=== PATIENT | female | born 1995 | race African-American/Black ===

== ENCOUNTER 2018-05-11 21:10 | Inpatient (IN) | payer OTHER ==
[2018-05-11 22:46] VITALS: BMI 38.0
[2018-05-11] MEDS ORDERED: BUTORPHANOL TARTRATE 1 MG/ML VIAL IVPB ONE (22:48)
[2018-05-11] MEDS ORDERED: PROMETHAZINE HCL 25 MG/1 ML VIAL IVPUSH ONE (22:48)
[2018-05-11] MEDS ORDERED: AMPICILLIN - 2 GM in SODIUM CHLORIDE 100 ML IVPB ONE (22:50)
[2018-05-11] MEDS: ELECTROLYTE-148 SOLN 1,000 ML IV SCH (23:00)
--- NOTE | 2018-05-11 23:01 | HP ---
Past Medical History - Primary Care Physician PCP:: Dana Aguilar - Admission Chief Complaint: Spontaneous rupture of membranes. 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 History Source: Patient - Past Medical History ...: 2 ...Para: 0 ...Term: 0 ...: 0 ...Spon : 0 ...Induced : 1 ...Multiple Gestation: 0 ...LMP: 08/08/18 ...EDC by Dates: 05/13/18 ...EDC by Sono: 05/15/18 - Past Surgical History Hx Myomectomy: No Hx Transabdominal Cerclage: No Additional Surgical History: VTOP x 1 - Smoking History Smoking history: Never smoked Have you smoked in the past 12 months: No - Alcohol/Substance Use Hx Alcohol Use: No Home Medications - Allergies Allergies/Adverse Reactions: Allergies Allergy/AdvReac Type Severity Reaction Status Date / Time latex Allergy Verified 05/11/18 22:51 Review of Systems - Review of Systems Constitutional: reports: No Symptoms Eyes: reports: No Symptoms HENT: reports: No Symptoms Neck: reports: No Symptoms Cardiovascular: reports: No Symptoms Respiratory: reports: No Symptoms Gastrointestinal: reports: No Symptoms Genitourinary: reports: No Symptoms Breasts: reports: No Symptoms Reported Musculoskeletal: reports: No Symptoms Integumentary: reports: No Symptoms Neurological: reports: No Symptoms Endocrine: reports: No Symptoms Hematology/Lymphatic: reports: No Symptoms Psychiatric: reports: No Symptoms Physical Exam - Maternity Vital Signs: Vital Signs Temperature 99.3 F 05/11/18 22:33 Pulse Rate 95 H 05/11/18 22:33 Respiratory Rate 18 05/11/18 22:33 Blood Pressure 136/81 05/11/18 22:33 O2 Sat by Pulse Oximetry (%) Constitutional: Yes: Well Nourished, No Distress Neck: Yes: Rigid Cardiovascular: Yes: WNL Lungs: Clear to auscultation - Abdominal Exam/OB Number of Fetuses: Single Presentation: Vertex Contractions: Yes Regularity: Regular Intensity: Mild/Mod Monitor Mode: External Category: I - Vaginal Exam/OB Dilatation (cm): 3 Amniotic Membrane Status: Ruptured Presentation: Vertex/Position - Physical Exam Musculoskeletal: Yes: WNL Extremities: Yes: WNL Edema: No Psychiatric: Yes: WNL, Alert, Oriented Hemorrhage Risk Assessment - Risk Factors Risk Score: 0 Risk Level: Low Risk Problem List - Problems (1) Spontaneous onset of labor Code(s): [id number] - Assessment/Plan IUP at 39 weeks srom Cat 1 Plan IV F Stadol
[2018-05-11 23:03] LABS: BASO % 0.2 % (0-2.0); HEMATOCRIT 34.8 % (32.4-45.2); HEMOGLOBIN 11.7 GM/dL (10.7-15.3); LYMPH % 17.2 % (8-40); MCHC 33.6 g/dl (32.0-36.0); MEAN CELL VOLUME 92.2 fl (80-96); MEAN PLT VOLUME 10.3 fl (7.5-11.1); MONO % 8.6 % (3.8-10.2); PLATELET COUNT 261 K/MM3 (134-434); RBC 3.78 M/mm3 (3.60-5.2); RDW 13.4 % (11.6-15.6); WHITE BLOOD COUNT 10.2 K/mm3 (4.0-10.0)
[2018-05-11 23:15] LABS: ANION GAP 10 MMOL/L (8-16); BLOOD UREA NITROGEN 6 mg/dL (7-18); CALCIUM 9.1 mg/dL (8.5-10.1); CHLORIDE 108 mmol/L (98-107); CO2 21 mmol/L (21-32); CREATININE 0.4 mg/dL (0.55-1.02); GLUCOSE,RANDOM 78 mg/dL (74-106); SODIUM 139 mmol/L (136-145)
[2018-05-11] MEDS ORDERED: AMPICILLIN SODIUM 2 GM VIAL ONE (23:16)
[2018-05-11 23:47] LABS: INR 0.87 (0.83-1.09); PROTHROMBIN TIME (PATIENT) 9.8 SEC (9.7-13.0)
[2018-05-11 23:49] LABS: ACTIVATED PTT 28.9 SECONDS (25.2-36.5)
[2018-05-11] MEDS ORDERED: FENTANYL/BUPIVACAINE/NS/PF - PCEA - 50 ML DISP.SYRIN EP ONE (23:56)
[2018-05-12] MEDS ORDERED: BUPIVACAINE HCL/PF 0.25% (2.5MG/ML) 10 ML VIAL ONE (00:11)
[2018-05-12] MEDS ORDERED: FENTANYL/BUPIVACAINE/NS/PF - PCEA - 50 ML DISP.SYRIN EP SCH ×2 (00:30→00:52)
[2018-05-12] MEDS ORDERED: NALOXONE HCL 0.4 MG/ML VIAL IVPUSH PRN (00:39)
[2018-05-12] MEDS: ELECTROLYTE-148 SOLN 1,000 ML IV SCH (02:07)
[2018-05-12] MEDS ORDERED: AMPICILLIN SODIUM 1 GM VIAL ONE (03:01)
[2018-05-12] MEDS ORDERED: OXYTOCIN 20 UNITS in 0.9% NS 20 UNIT/1,000 ML INFUS.BAG IV ONE ×2 (03:13→03:50)
[2018-05-12] MEDS ORDERED: LIDOCAINE HCL 1% PRESERVATIVE FREE - 30ML VIAL ONE (03:13)
[2018-05-12] MEDS ORDERED: AMPICILLIN - 1 GM in SODIUM CHLORIDE 100 ML IVPB SCH (03:30)
--- NOTE | 2018-05-12 03:37 | PN ---
Ante-Partal Exam - Subjective Subjective: Pt wit tachycardia 174 with low grade temp Vital Signs: Vital Signs Temperature 98.2 F 05/12/18 02:00 Pulse Rate 95 H 05/12/18 03:00 Respiratory Rate 18 05/12/18 03:00 Blood Pressure 122/63 05/12/18 03:00 O2 Sat by Pulse Oximetry (%) 100 05/12/18 03:00 Bleeding: No Headache: No Visual changes: No Right upper quadrant pain: No - Contractions Contractions: Yes Regularity: Regular Intensity: Moderate Monitor Mode: External - Exam during Labor Heart Rate: 170 Variability: Moderate Heart Rate Location: [facility] Category: II Monitor Accelerations: Present Monitor Decelerations: Variable Exam: Vaginal Dilatation (cm): 10 Amniotic Membrane Status: Ruptured Meconium Staining: Light Presentation: Vertex Station: 0 - Intrapartum Hemorrhage Risk Medium Risk Factors: Chorioamniomitis Risk Score: 1 Risk Level: Medium Risk - Assessment/Plan Assessment/Plan: Cat 2 variable decels Tracing improved after O2 and side position will allow vaginal pushing if intolerance will do CS Plan Allow pushing CS if intolerance
[2018-05-12] MEDS ORDERED: CITRIC ACID/SODIUM CITRATE 30 ML UNIT-DOSE CUP PO ONE (03:44)
[2018-05-12] MEDS ORDERED: METHYLERGONOVINE MALEATE 0.2 MG/1 ML AMP IM PRN (03:55)
[2018-05-12] MEDS ORDERED: SIMETHICONE 80 MG TAB.CHEW (FP) PO PRN (03:55)
[2018-05-12] MEDS ORDERED: OXYTOCIN 20 UNITS in 0.9% NS 20 UNIT/1,000 ML INFUS.BAG IV SCH (04:00)
--- NOTE | 2018-05-12 04:33 | PROC ---
Obstetrical Vaccum Device - Doc. Following Use of Vaccum Device Indications for use: Tachycardia Risks and Benefits Explained: Yes Consent on Chart: Yes Station: 2 Caput: Yes Proper placement of cup confirmed: Yes Number of pulls: 1 Number of pop-offs: 0 Maximum pressure attained: 50 Total time cup near/at maximum pressure (min): 1 Reduction of pressure between contractions: Yes Appearance of head on delivery: Caput Inspector [employer]ined [employer] present during vacuum extraction: Yes Inspector [employer]ined [employer] & nursery staff notified of vacuum extraction: Yes
--- NOTE | 2018-05-12 04:35 | PN ---
Delivery - Delivery Vaginal Delivery: Vacuum Assist Type of Anesthesia: Epidural EBL (cc): 400 Delivery, Single - Stages of Labor Placenta: Yes: Spontaneous - Condition of Cubing Machine Tender/Cocktail Server Present: Yes Infant Gender: Male Position: OP - [place] Feeding Plan Initial Plan: Elected not to breastfeed exclusively throughout hospitalization
[2018-05-12 04:38] LABS: ARTERIAL BLOOD GAS BASE EXCESS -7.9 meq/l (-2-2); ARTERIAL BLOOD GAS PCO2 47.7 mmHg (35-45)
[2018-05-12 04:42] LABS: ARTERIAL BLOOD GAS PO2 19.2 mmHg (80-100); ARTERIAL BLOOD GAS pH 7.23 (7.35-7.45)
[2018-05-12 04:43] LABS: ARTERIAL BLD GAS O2 SATURATION 26.7 % (90-98.9); VENOUS PH 7.27 (7.32-7.42)
[2018-05-12 04:44] LABS: VENOUS PC02 43.4 mmHg (38-52); VENOUS PO2 21.5 mmHg (28-48)
[2018-05-12] MEDS ORDERED: oxyCODONE HCL 5 MG TABLET ONE (05:07)
[2018-05-12] MEDS: oxyCODONE HCL 5 MG TABLET PO PRN ×3 (05:09→22:37)
[2018-05-12] MEDS: FERROUS SO4 325 MG TABLET (FP) PO SCH ×2 (07:44→17:26)
[2018-05-12] MEDS: IBUPROFEN 600 MG TABLET (FP) PO PRN ×2 (07:51→22:38)
[2018-05-12] MEDS: AMPICILLIN NA/SULBACTAM NA 1.5 GM in SODIUM CHLORIDE 100 ML IVPB SCH ×3 (08:59→21:11)
[2018-05-12] MEDS: PRENATAL VITAMINS W/ FOLIC ACID TABLET (FP) PO SCH (11:12)
[2018-05-13] MEDS: AMPICILLIN NA/SULBACTAM NA 1.5 GM in SODIUM CHLORIDE 100 ML IVPB SCH (03:42)
[2018-05-13] MEDS ORDERED: BISACODYL 10 MG SUPP.RECT RC PRN (03:55)
[2018-05-13] MEDS: FERROUS SO4 325 MG TABLET (FP) PO SCH ×2 (07:59→17:41)
[2018-05-13 09:17] LABS: BASO % 0.2 % (0-2.0); EOS % 0.5 % (0-4.5); HEMATOCRIT 27.6 % (32.4-45.2); HEMOGLOBIN 8.8 GM/dL (10.7-15.3); LYMPH % 13.9 % (8-40); MCH 29.9 pg (25.7-33.7); MCHC 31.8 g/dl (32.0-36.0); MEAN CELL VOLUME 93.9 fl (80-96); MEAN PLT VOLUME 9.4 fl (7.5-11.1); MONO % 6.7 % (3.8-10.2); NEUT % 78.7 % (42.8-82.8); PLATELET COUNT 218 K/MM3 (134-434); RBC 2.93 M/mm3 (3.60-5.2); RDW 13.6 % (11.6-15.6)
[2018-05-13] MEDS: PRENATAL VITAMINS W/ FOLIC ACID TABLET (FP) PO SCH (09:50)
[2018-05-13] MEDS ORDERED: DIPHTH,PERTUSS(ACELL),TET 0.5 ML DISP.SYRIN IM ONE (10:00)
[2018-05-13 11:52] LABS: ANISOCYTOSIS 1+; MACROCYTOSIS 0; PLATELET ESTIMATE NORMAL
[2018-05-13] MEDS: IBUPROFEN 600 MG TABLET (FP) PO PRN ×2 (15:38→22:44)
--- NOTE | 2018-05-13 17:30 | PN ---
Post Progress Note - Subjective Subjective: Pt without complaints. Afebrile X 24 hours. No CP/SOB/F/C/GARCIAS. Tolerating diet. Ambulating. Type of Delivery: Vacuum Assist Vag Del Vital Signs: Vital Signs Temperature 98.4 F 05/13/18 07:45 Pulse Rate 83 05/13/18 07:45 Respiratory Rate 20 05/13/18 07:45 Blood Pressure 104/71 05/13/18 07:45 O2 Sat by Pulse Oximetry (%) 98 05/12/18 06:40 Breast Exam: Yes: Soft Uterus: Yes: Fundus Firm Abdomen/GI: Yes: Abdomen soft, Tolerating PO Lochia: Yes: Rubra Lochia, amount: Small Extremities: No: Calves non-tender, Edema Activity: Ambulating - Labs Labs: CBC WBC 23.0 K/mm3 (4.0-10.0) H 05/13/18 08:45 RBC 2.93 M/mm3 (3.60-5.2) L 05/13/18 08:45 Hgb 8.8 GM/dL (10.7-15.3) L 05/13/18 08:45 Hct 27.6 % (32.4-45.2) L D 05/13/18 08:45 MCV 93.9 fl (80-96) 05/13/18 08:45 MCH 29.9 pg (25.7-33.7) 05/13/18 08:45 MCHC 31.8 g/dl (32.0-36.0) L 05/13/18 08:45 RDW 13.6 % (11.6-15.6) 05/13/18 08:45 Plt Count 218 K/MM3 (134-434) 05/13/18 08:45 MPV 9.4 fl (7.5-11.1) 05/13/18 08:45 Absolute Neuts (auto) 18.1 K/mm3 (1.5-8.0) H 05/13/18 08:45 Neutrophils % 78.7 % (42.8-82.8) 05/13/18 08:45 Neutrophils % (Manual) 79.8 % (42.8-82.8) 05/13/18 08:45 Band Neutrophils % 3.0 % 05/13/18 08:45 Lymphocytes % 13.9 % (8-40) 05/13/18 08:45 Lymphocytes % (Manual) 10.1 % (8-40) 05/13/18 08:45 Monocytes % 6.7 % (3.8-10.2) 05/13/18 08:45 Monocytes % (Manual) 4 % (3.8-10.2) 05/13/18 08:45 Eosinophils % 0.5 % (0-4.5) D 05/13/18 08:45 Eosinophils % (Manual) 3.0 % (0-4.5) 05/13/18 08:45 Basophils % 0.2 % (0-2.0) 05/13/18 08:45 Basophils % (Manual) 0.0 % (0-2.0) 05/13/18 08:45 Myelocytes % (Man) 0 % (0-2) 05/13/18 08:45 Promyelocytes % (Man) 0 % (0-2) 05/13/18 08:45 Blast Cells % (Manual) 0 % (0-0) 05/13/18 08:45 Nucleated RBC % 0 % (0-0) 05/13/18 08:45 Metamyelocytes 0 % (0-2) 05/13/18 08:45 Hypochromia 0 05/13/18 08:45 Platelet Estimate Normal 05/13/18 08:45 Polychromasia 1+ 05/13/18 08:45 Poikilocytosis 0 05/13/18 08:45 Anisocytosis 1+ 05/13/18 08:45 Microcytosis 1+ 05/13/18 08:45 Macrocytosis 0 05/13/18 08:45 Problem List - Problems (1) Status post vacuum-assisted vaginal delivery Code(s): Z87.42 - PERSONAL HISTORY OF OTH DISEASES OF THE FEMALE GENITAL TRACT Assessment/Plan 22 y/o PPD#1 s/p VAVD, doing well AFVSS Hgb stable, WBC 23 today, s/p antibiotics X 24 hours, recheck CBC in a.m. regular diet PO pain meds routine care
[2018-05-14] MEDS: oxyCODONE HCL 5 MG TABLET PO PRN (00:26)
--- NOTE | 2018-05-14 02:52 | DS ---
Physical Exam-LUBRICATOR GRANULATOR Vital Signs: Vital Signs Temperature 98.9 F 05/14/18 00:28 Pulse Rate 88 05/13/18 20:40 Respiratory Rate 20 05/13/18 20:40 Blood Pressure 124/70 05/13/18 20:40 O2 Sat by Pulse Oximetry (%) 98 05/12/18 06:40 Labs: CBC, BMP 05/13/18 08:45 05/11/18 22:30 Delivery - Delivery Vaginal Delivery: Vacuum Assist Type of Anesthesia: Epidural Episiotomy/Laceration: Midline EBL (cc): 400 Delivery, Single - Stages of Labor Date 1st Stage Initiatied: 05/11/18 Time 1st Stage Initiated: 12:00 Date 2nd Stage Initiated: 05/12/18 Time 2nd Stage Initiated: 03:20 Date of Delivery: 05/12/18 Time of Delivery: 04:18 Time Placenta Delivered: 04:20 Placenta: Yes: Spontaneous - Condition of Mold Stacker/Visual Journalist Present: Yes Name: Anita Diaz Gender: Male Weight: 7 lb 13.5 oz Position: OP Total Hours ROM (Hrs/Mins): 6HOUR/35min - 1 Minute Total Score: 9 5 Minutes Total Score: 9 - [place] Feeding Plan Initial Plan: Elected not to breastfeed exclusively throughout hospitalization Discharge Summary Reason For Visit: LABOR Current Active Problems Spontaneous onset of labor (Acute) Status post vacuum-assisted vaginal delivery (Acute) Procedures: Principal: Vacuum Adsisted Vaginal Delivery Hospital Course: Pt admitted in labor on 05/11/18, underwent a vacuum assisted vaginal delivery on 05/12 for tachycardia and maternal fever/suspected chorioamnonitis. The patient received 24 hours of post delivery antibiotics and afterwards was afebrile the remainder of admission. She was stable and discharged home on post day 2. Condition: Good - Instructions Diet, Activity, Other Instructions: Physical activity Resume your normal everyday activity as tolerated no heavy lifting or exercise until seen by your surgeon. You may walk unlimited matt of and climb stairs. You may resume driving the car when you feel safe and comfortable behind the wheel. No sexual activity as instructed. Wound care If you have a bandage, leave it on, and keep dry for 48-72 hours. After that time discard the outer bandage. If they are tapes on the skin under the out of bandage leave them in place. They will peel off in the next 7 to 10 days. Do Not Peel them off. You may shower the day after surgery. If there are tapes present on the skin, you may shower over them. Diet There are no dietary restrictions. Eat healthy, high-fiber foods. Drink 6 to 8 glasses of liquid each day. This will assist in keeping your bowels are regular. Pain management You may take Tylenol or acetaminophen or Ibuprofen (for example, Motrin, Advil etc.) from my pain prescription medication is ordered should be taken as prescribed for moderate to severe pain. Call MD for any of the following: Severe pain not relieved by medication Fever of 101 or higher Excessive bleeding or drainage on dressing Inability to urinate Referrals: Dinorah Pelaez DO [Staff Physician] - 1 Month (6 weeks) Disposition: HOME - Home Medications Comprehensive Discharge Medication List: Ambulatory Orders Valacyclovir HCl [Valtrex] 2 tab PO DAILY 05/11/18 Vit Calc,Iron,Folic [ Vitamins] 1 each PO DAILY 05/12/18
[2018-05-14] MEDS: FERROUS SO4 325 MG TABLET (FP) PO SCH (09:29)
[2018-05-14] MEDS: IBUPROFEN 600 MG TABLET (FP) PO PRN (09:40)
[2018-05-14] MEDS: PRENATAL VITAMINS W/ FOLIC ACID TABLET (FP) PO SCH (09:41)
[2018-05-14 10:53] LABS: BASO % 0.2 % (0-2.0); EOS % 0.6 % (0-4.5); HEMATOCRIT 27.9 % (32.4-45.2); LYMPH % 14.5 % (8-40); MCH 30.1 pg (25.7-33.7); MCHC 32.3 g/dl (32.0-36.0); MEAN CELL VOLUME 93.2 fl (80-96); MEAN PLT VOLUME 9.3 fl (7.5-11.1); MONO % 4.9 % (3.8-10.2); NEUT % 79.8 % (42.8-82.8); PLATELET COUNT 261 K/MM3 (134-434); RDW 13.7 % (11.6-15.6); WHITE BLOOD COUNT 17.1 K/mm3 (4.0-10.0)
[2018-05-14 11:27] VITALS: BP 117/65; PULSE 90; TEMP 98.6
[2018-05-14 12:24] LABS: ANISOCYTOSIS 1+; MACROCYTOSIS 0; PLATELET ESTIMATE NORMAL
== END 2018-05-14 14:00 | disposition home or self-care (01) | DRG 775 ==
LOC: JDEL 21:10 → JLDR 22:00 → J3W 05-12 06:15
PROVIDERS: ADMIT Obstetrics & Gynecology; ATTEND Obstetrics & Gynecology
PROC: 10D07Z6 Extraction of Products of Conception, Vacuum, Via Natural or Artificial Opening (ICD-10-PCS; principal; 2018-05-12)
DX: O77.9 Labor and delivery complicated by fetal stress, unspecified (principal); O41.1230 Chorioamnionitis, third trimester, not applicable or unspecified; O66.5 Attempted application of vacuum extractor and forceps; Z3A.39 39 weeks gestation of pregnancy; Z37.0 Single live birth
CPT/HCPCS: 36415; 36600; 59409; 80048; 82803; 85025; 85461; 85610; 85730; 86593; 86850; 86900; 86901; 86999; 87389; 90715